=== PATIENT | female | born 1950 | race Caucasian/White ===

== ENCOUNTER 2022-09-02 11:34 | Outpatient (CLI) | payer MEDICARE, SELFPAY ==
--- NOTE | ~2022-09-02 | XR_ITS ---
XR knee LT 3V 09/02/2022 12:31 Indication: Left knee pain Procedure: 3 views left knee Comparison: No prior studies for comparison. Findings: There is mild tricompartment osteoarthritis. There is chondrocalcinosis. Osteopenia. No fra cture, subluxation or dislocation. No foreign bodies. Impression: 1: Mild tricompartment osteoarthritis. 2.: Chondrocalcinosis. Reviewed, dictated and finalized at location B. Impression: 1: Mild tricompartment osteoarthritis. 2.: Chondrocalcinosis.
== END 2022-09-02 11:35 | disposition home or self-care (01) ==
LOC: CHSIMG 11:40
PROVIDERS: PCP Internal Medicine; Visit Provider Internal Medicine
DX: M81.0 Age-related osteoporosis without current pathological fracture (principal); M25.562 Pain in left knee; M17.12 Unilateral primary osteoarthritis, left knee; M11.272 Other chondrocalcinosis, left ankle and foot
CPT/HCPCS: 73562

== ENCOUNTER 2022-09-06 10:10 | Outpatient (RCR) | payer MEDICARE, SELFPAY ==
--- NOTE | 2022-09-06 11:39 | PTOPEVAL1 ---
Assessment and note entered by Lexy Travis DPT Evaluation Information Assessment Status Evaluation Diagnosis L knee pain Onset 08/21/22 Subjective Information Patient reports about 3 weeks ago she was walking on what she thought was a stripe in the floor but it was actually a ledge and fell and hit her knee. She reports she has poor eye sight due to diabetes. She reports about 2 weeks after she went to the MD and x-rays showed arthritis. She reports after the fall she did not have any swelling. She reports prior she did not use a AD but now she is walking with a walker for safety. She now has difficulty with stair navigation and stepping up into cars. Prior to fall patient did not have knee pain. Patient reports presence of hardware in R LE Reported Pain Level Pain Score 0: Self Report Assessment PT Clinical Summary Patient is a 71 year old female who presents to PT with R knee pain following a fall. Patient demonstrates decreased R LE strength, decreased R LE extension ROM and impaired gait impairing her ability to navigate stairs and get into and out of vehicles. She would benefit from skilled PT to address impairments and return to PLOF. Plan of Care Interventions Electrical Stimulation,Gait Training,Hot Pack/Cold Pack,Manual Therapy,Mechanical Traction,Neuro Re- education,Patient/Caregiver Educati,Therapeutic Activities,Therapeutic Exercise PT Services Indicated Yes Treatment Frequency and 2x weekly for 12 visits Duration These treatments will address the objective and functional deficits as defined above. The patient will be advanced safely and appropriately in order for the patient to progress towards his/her prior level of function. Additional exercises will be introduced and as well as a comprehensive home exercise program upon discharge, if needed, ?to ensure carryover of functional gains achieved in the clinic. This treatment plan has been reviewed and agreement upon by the patient.
--- NOTE | 2022-12-16 15:13 | PCPTNOTE ---
Patient discharged due to not returning after last visit and improved symptoms
== END 2022-10-16 20:00 | disposition home or self-care (01) ==
LOC: CHSPT 10:10
PROVIDERS: PCP Internal Medicine; Visit Provider Internal Medicine
DX: M25.562 Pain in left knee (principal)
CPT/HCPCS: 97110; 97161; 97530

== ENCOUNTER 2022-09-09 12:22 | Outpatient (CLI) | payer MEDICARE, SELFPAY ==
--- NOTE | ~2022-09-09 | DEXA_ITS ---
Bone Density Report Name: LEVAR PETERS Age: 71 Sex: Female Ethnicity: White Date of : 1950 Indication: postmenopausal; screening for osteoporosis; parental hip fracture; height loss; prior fracture; hysterectomy; Referring Provider: Mickey Cabrales Study: Bone densitometry was performed. Exam Date: September 09, 2022 Accession number: [id number] Bone Density: Region BMD T-score Z-score Classification AP Spine(L2, L3, L4) 1.077 0.0 2.1 Normal Femoral Neck (Left) 0.638 -1.9 -0.1 Osteopenia Total Hip (Left) 0.704 -2.0 -0.5 Osteopenia World Health Organization criteria for BMD impression classify patients as: Normal (T-score at or above -1.0), Osteopenia (T-score between -1.0 and -2.5), or Osteoporosis (T-score at or below -2.5). 10-year Fracture Risk: FRAX not reported because: Prior hip or vertebral fracture Treated for osteoporosis Clinical Information Provided by Patient: Have had a previous hip or vertebral fracture Has had a low trauma fracture Parent has had a hip fracture Is being treated for osteoporosis Has used the following medications: Reclast (i.e. zoledronate), Vitamin D, Calcium Has the following medical conditions: Hysterectomy Patient maximum height was 66 Menopause Age: 52 Drinks caffeinated beverages Onset of menses at age 15 Number of children 2 Impression: The patient has low bone mass, based on the Left Total Hip T-score. The patient has risk factors, including: parental hip fracture, previous fracture. Discussion: It is important to ask patients whether they are taking their medications and to encourage continued and appropriate compliance with their osteoporosis therapies to reduce fracture risk. It is also important to review their risk factors and encourage appropriate calcium and vitamin D intakes, exercise, fall prevention and other lifestyle measures. Follow-Up: Consider a repeat BMD and Vertebral Fracture Assessment (VFA) exam in 2 years or sooner if medically necessary, to reassess this patient's status. Reported by: Dr. Mau Lopez on 09/09/2022 1:04:00 PM. Reviewed, dictated and finalized at location A. [facility]
== END 2022-09-09 12:23 | disposition home or self-care (01) ==
LOC: CHSIMG 12:23
PROVIDERS: PCP Internal Medicine; Visit Provider Internal Medicine
DX: Z78.0 Asymptomatic menopausal state (principal); M85.89 Other specified disorders of bone density and structure, multiple sites
CPT/HCPCS: 77080

== ENCOUNTER 2024-10-15 07:19 | Outpatient (CLI) | payer MEDICARE, SELFPAY ==
--- OUTSIDE RECORDS SUMMARY | 2024-10-15 07:23 | XMS_ITS | Clinical Summary ---
Author Organization [facility] Address [address] [place] [address] Care Team Providers Care Screen Printer Helper Name Role Phone Senait Powers MD Primary Care Provider Allergies Active Allergy Reactions Criticality Noted Date Comments Codeine Vomiting Reaction: vomitting, , Metformin Nausea only Low 11/15/2019 diarrhea Ondansetron Nausea & Vomiting Low 09/15/2017 Ondansetron Hcl Nausea Only 10/06/2017 Penicillins Rash Reaction: Rash, , Sitagliptin Nausea only Low 11/15/2019 Medications aspirin (ASPIR-81) 81 mg tablet take 1 tablet by oral route every day 0 0 4 Active multivitamin capsule take 1 capsule by oral route every day 0 0 4 Active clopidogrel (PLAVIX) 75 mg tablet take 1 tablet by oral route every day 0 0 4 Active simvastatin (ZOCOR) 40 mg tablet take 1 tablet by oral route every day in the evening 0 0 4 Active insulin glargine (LANTUS) 100 unit/mL injection [The details of the medication are not available because there are pending changes by a home health clinician.] 3 vial 2 4 Active Additional Information Patient taking differently: 28 Units subcutaneous Nightly, Indications: type 2 diabetes mellitus, Reported on 09/15/2017 pravastatin (PRAVACHOL) 40 mg tablet take 1 tablet by oral route every day 30 2 4 Active amitriptyline (ELAVIL) 25 mg tablet take 1 tablet by oral route every day at bedtime 30 1 4 Active acetaminophen (TYLENOL EXTRA STRENGTH) 500 mg tabletIndicatio ns:Pain Take 1,000 mg by mouth every 6 (six) hours as needed for pain. Active senna-docusate (SENEXON-S) 8.6-50 mgIndications:c onstipation Take 2 tablets by mouth 2 (two) times a day. Active losartan (COZAAR) 25 mg tabletIndicatio ns:hypertension Take 25 mg by mouth daily. Active glipiZIDE (GLUCOTROL) 5 mg tabletIndicatio ns:type 2 diabetes mellitus Take 10 mg by mouth 2 (two) times a day before breakfast and lunch. takes 2 five mg. tabs twice a day before meals. Active pantoprazole DR (PROTONIX) 40 mg EC tabletIndicatio ns:Treatment of Non-Bleeding Gastric Disorder Take 40 mg by mouth daily. Active oxyCODONE (ROXICODONE) 5 mg immediate release tabletIndicatio ns:Pain Take 5 mg by mouth every 4 (four) hours as needed for pain. Active cyclobenzaprine (FLEXERIL) 10 mg tabletIndicatio ns:Muscle Spasm Take 10 mg by mouth 3 (three) times a day as needed for muscle spasms. Active traMADol (ULTRAM) 50 mg tabletIndicatio ns:Pain Take 50 mg by mouth every 6 (six) hours as needed for pain. rx in the home # [id number] 8 Active blood-glucose meter (FREESTYLE FREEDOM LITE) kit Check Blood sugar at breakfast and one other ti me of the day on a rotation basis. 7 Active calcium carbonate-vitam in D3 (CALCIUM 600 + D,3,) 1500 mg (600 mg elemental) -200 units per tablet Calcium 600 + D(3) take one tablet twice daily Active lancets (freestyle) 28 gauge misc Check Blood sugar at breakfast and one other ti me of the day on a rotation basis. 7 Active gabapentin (NEURONTIN) 100 mg capsule Take 100 mg by mouth. 8 Active blood glucose diagnostic (FREESTYLE LITE STRIPS) strip Check Blood sugar at breakfast and one other ti me of the day on a rotation basis. 7 Active insulin syringe-needle U-100 1/2 mL 30 gauge syringe Once a day 7 Active omeprazole (PriLOSEC) 40 mg capsule daily. Active blood glucose diagnostic (ONETOUCH ULTRA TEST) strip OneTouch Ultra Test strips TEST THREE TIMES DAILY Active raNITIdine (ZANTAC) 150 mg tablet every 12 hours. Acti ve traZODone (DESYREL) 50 mg tablet daily. Active prochlorperazin e (COMPAZINE) 10 mg tablet TK 1 T PO Q 6 H PRF NAUSEA OR VOM 0 8 Active pioglitazone (ACTOS) 45 mg tablet TK 1 T PO Q DAY 0 9 Active Active Problems Problem Noted Date Diagnosed Date Essential hypertension 04/04/2020 Assessment & Plan (04/10/2021 2:07 PM BUSINESS ANALYST MANAGER): Impression: Chronic stable hypertension, controlled medications. Blood pressure stable this office visit. Plan: Medications reviewed, no changes made. Continue blood pressure management as per primary care provider. Atherosclerosis with claudication of extremity 1 06/04/2019 Endometrial cancer 01/14/2019 Peripheral vascular disease, unspecified 019 Diabetes mellitus 10/31/2017 Assessment & Plan (04/10/2021 2:07 PM BUSINESS ANALYST MANAGER): Impression: Patient reports she is diabetic and is compliant with glucose monitoring and glucose therapy. She states her blood sugars have been below 100. Plan: Continue diabetic management as per primary care provider. Foot-drop 10/31/2017 Closed fracture of right tibial plateau 09/19/19 18 Atherosclerosis of [place] of both lower extremities with intermittent claudication 12/30/2016 Assessment & Plan (04/10/2021 2:09 PM BUSINESS ANALYST MANAGER): Impression: Patient has stable non disabling claudication to bilateral lower extremity. She has some progression of stenosis is noted on the arterial Doppler. No ulcerations noted to bilateral lower extremities. Plan: No surgical interventions are needed at this time. Patient to follow-up in 1 year for re-evaluation with arterial duplex. Patient instructed to follow up sooner if she develops any worsening symptoms. Patient understands. Assessment & Plan (04/07/2019 3:11 PM BUSINESS ANALYST MANAGER): Impression: Stable nondisabling bilateral calf level claudication. No ischemic ulcerations or ischemic rest pain. No progressive stenosis noted on arterial Doppler surveillance. Plan: No surgical intervention currently needed. Patient follow-up in 6 months for re-evaluation and repeat lower extremity arterial Doppler surveillance. Diabetic polyneuropathy 07/16/2013 Overview (08/29/2016): Polyneuropathy in diabetes Mononeuropathy associated with type II diabetes mellitus 06/16/2013 Overview (08/30/2016): Type 2 diabetes mellitus with diabetic neuropathy Hyperlipidemia 06/16/2013 Overview (08/31/2016): Hyperlipidemia Assessment & Plan (04/07/2019 3:11 PM BUSINESS ANALYST MANAGER): Impression: Stable hyperlipidemia. Plan: Continue current pharmacotherapy as directed by PCP. 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 Immunizations Immunization Administration Dates Next Due Hep A, Adult 12/03/2005 Influenza, Quadrivalent, Split, Intramuscular ,02/27/2015 Influenza, Quadrivalent, Spl it, Preservative Free, Intramuscular 02/28/2020,02/16/2018 Pneumococcal Conjugate PCV 13 02/16/2018 Pneumococcal Polysaccharide PPV23 02/27/2015 Surgical History Surgery Date Site/Laterality Comments TUBAL LIGATION Bilateral tubal ligation OPEN REDUCTION INTERNAL FIXATION ORIF Medical History Medical History Date Comments Diabetes mellitus (HCC) Diabetes Hyperlipidemia Hyperlipidemia Type 2 diabetes mellitus (HCC) D iabetes type 2; Comments: [facility] 12/22/2013 - Hx Other Medical cataracts/ 2 me erick rods in left thigh; Comments: [facility] 12/22/2013 - Family History Medical History Relation Name Comments Parkinsonism Father Parkinson's dis ease; Stroke Father Stroke; Alzheimer's disease Mother Alzheime r's disease; Bladder Cancer Mother Cancer, bladd er; Breast cancer Mother Cancer, breast ; Cancer Other Family history of Cancer; Other Other cancer unknown; Stroke Other Family history of Stroke; Relation Name Status Comments Father Mother Other Social History Tobacco Use Types Packs/Day Years Used Date Smoking Tobacco: Every Day Alcohol Use Standard Drinks/Week Comments No 0 (1 standard drink = 0.6 oz pur e alcohol) Comments Unknown Sex and Gender Information Value Date Recorded Sex Assigned at Not on file Legal Sex Female 2:15 PM BUSINESS ANALYST MANAGER Gender Identity Not on file Sexual Orientation Not on file Obstetrics History Last Filed Vital Signs Vital Sign Reading Time Taken Comments Blood Pressure 155/83 04/10/2021 10:33 AM BUSINESS ANALYST MANAGER Pulse 105 04/10/2021 10:33 AM BUSINESS ANALYST MANAGER Temperature 36.9 C (98.4 F) 03/26/2019 11:11 AM CDT Respiratory Rate 97 11/28/2017 10:05 AM CDT Oxygen Saturation 97% 11/28/2017 10:05 AM CDT Inhaled Oxygen Concentration - - Weight 77.1 kg (170 lb) 04/10/2021 10:33 AM BUSINESS ANALYST MANAGER Height 168.9 cm (5' 6.5) 04/10/2021 10:33 AM CS T Body Mass Index 27.03 04/10/2021 10:33 AM BUSINESS ANALYST MANAGER Plan of Treatment Not on file Insurance [facility] MEDICARE ADVANTAGE [facility] MEDICARE ADVANTAGE [facility] MEDICARE [facility] RE[facility] HMO REF Advance Directives For more information, please contact: [phone] * Full Code (Latest Code Status on File) Date Activated Date Inactivated Comments 2017 3:19 PM Full code, laura rothman CPR Care Teams Screen Printer Helper Relationship Specialty Start Date End Date Senait Powers MD PCP - General 09/11/17
--- OUTSIDE RECORDS SUMMARY | 2024-10-15 07:24 | XMS_ITS | Encounter Summary ---
Author Organization [facility] Address [address] [place] [address] Phone Care Team Providers Care Public Transit Bus Driver Name Role Phone Nestor Gotti Unavailable Senait Powers MD Primary Care Provider [phone] Bon Cornell MD Unavailable Reason for Visit * Reason Comments Medication Refill Encounter Details Date Type Department Care Team (Late st Contact Info) Description 08/17/2021 Refill [facility] - Endocrinology - [place] [address] [place] [address] Bon Cornell MD [address] [address] Medication Refill Social History Tobacco Use Types Packs/Day Years Used Date Smoking Tobacco: Former Smokeless Tobacco: Never Alcohol Use Standard Drinks/Week Comments No 0 (1 standard drink = 0.6 oz pur e alcohol) PHQ-2 Answer Date Recorded Total Score - Questions 1-9 0 11/2020 Sexually Active Control Partners Comments Never Comments No Sex and Gender Information Value Date Recorded Sex Assigned at Not on file Legal Sex Female 10:56 PM CDT Gender Identity Not on file Sexual Orientation Not on file documented as of this encounter Miscellaneous Notes * Telephone Encounter - Jimena Estrada RN - 08/17/2021 1:40 PM CDT Requested Prescriptions Pending Prescriptions Disp Refills ??? Insulin Syringe-Needle U-100 (INSULIN SYRINGE .5CC/31GX5/16) 31G X 5/16 0.5 ML Misc [PharmacyMed Name: CARROL SYR/NDL 31G 0.5ML 8MM] 100 Each 3 Sig: USE ONCE DAILY DIRECTED Next appt: Message sent to schedule follow up. documented in this encounter Plan of Treatment Not on file documented as of this encounter Visit Diagnoses Not on filedocumented in this encounter Additional Health Concerns Assessment Noted Time PHQ-9 Depression Total Score: 0 10/31/19 21 10:00 AM CDT documented as of this encounter Care Teams Public Transit Bus Driver Relationship Specialty Start Date End Date Senait Powers MD [address] [place] [address] PCP - General Family Medicine 07/03/16 11/10/23 Nestor Gotti [address] [facility] [place] [address] Ophthalmology 07/03/16 Bon Cornell MD [address] [address] Consulting Physician Endocrinology 06/13/20 08/11/24 documented as of this encounter
--- OUTSIDE RECORDS SUMMARY | 2024-10-15 07:24 | XMS_ITS | Encounter Summary ---
Author Organization [facility] Address [address] [place] [address] Phone Care Team Providers Care Oil And Gas Well Treatment Operator Name Role Phone Nestor Gotti Unavailable Senait Powers MD Primary Care Provider [phone] Bon Cornell MD Unavailable Reason for Visit * Reason Comments Medication Refill Encounter Details Date Type Department Care Team (Late st Contact Info) Description 05/10/2021 Refill [facility] - Endocrinology - [place] [address] [place] [address] Bon Cornell MD [address] [address] Medication Refill Social History Tobacco [...] on file Sexual Orientation Not on file COVID-19 Exposure Response Date Recorded In the last month, have you been in contact with someone who was confirmed or suspected to have Coronavirus / COVID-19? No / Unsure 05/10/2021 1:38 PM GED TEACHER documented as of this encounter Miscellaneous Notes * Telephone Encounter - Jimena Estrada, RN - 05/10/2021 10:13 AM GED TEACHER Requested Prescriptions Pending Prescriptions Disp Refills ??? Insulin Syringe-Needle U-100 (INSULIN SYRINGE .5CC/31GX5/16) 31G X 5/16 0.5 ML Misc [PharmacyMed Name: STARLAEENS SYR/NDL 31G 0.5ML 8MM] 100 Each 3 Sig: USE ONCE DAILY DIRECTED Next appt: 05/10/2021 TEACHER documented in this encounter Plan of Treatment Not on file documented as of this encounter Visit Diagnoses Not on filedocumented in this encounter Additional Health Concerns Assessment Noted Time PHQ-9 Depression Total Score: 0 10/31/19 21 10:00 AM CDT documented as of this encounter Care Teams Oil And Gas Well Treatment Operator Relationship Specialty Start Date End Date Senait Powers MD [address] [place] [address] PCP - General Family Medicine 07/03/16 11/10/23 Nestor Gotti [address] [place] [address] Ophthalmology 07/03/16 Bon Cornell MD [address] [address] Consulting Physician Endocrinology 06/13/20 08/11/24 documented as of this encounter
--- OUTSIDE RECORDS SUMMARY | 2024-10-15 07:24 | XMS_ITS | Referral Summary ---
Author Organization [facility] Address [address] [place] [address] Care Team Providers Care Human Insights Lead Ads Marketing Name Role Phone Senait Powers MD Primary [...] for pain. rx in the home # [id number] 8 Active blood-glucose meter (FREESTYLE FREEDOM LITE) [...] 04/04/2020 Assessment & Plan (04/10/2021 2:07 PM MEAT INSPECTOR): Impression: Chronic stable hypertension, controlled medications. Blood pressure stable this office visit. Plan: Medications reviewed, no changes made. Continue blood pressure management as per primary care provider. Atherosclerosis with claudication of extremity 1 06/04/2019 Endometrial cancer 01/14/2019 Peripheral vascular disease, unspecified 019 Diabetes mellitus 10/31/2017 Assessment & Plan (04/10/2021 2:07 PM MEAT INSPECTOR): Impression: Patient reports she is diabetic and is compliant with glucose monitoring and glucose therapy. She states her blood sugars have been below 100. Plan: Continue diabetic management as per primary care provider. Foot-drop 10/31/2017 Closed fracture of right tibial plateau 09/19/19 18 Atherosclerosis of [place] of both lower extremities with intermittent claudication 12/30/2016 Assessment & Plan (04/10/2021 2:09 PM MEAT INSPECTOR): Impression: Patient has stable non disabling claudication [...] understands. Assessment & Plan (04/07/2019 3:11 PM MEAT INSPECTOR): Impression: Stable nondisabling bilateral calf level claudication. [...] Hyperlipidemia Assessment & Plan (04/07/2019 3:11 PM MEAT INSPECTOR): Impression: Stable hyperlipidemia. Plan: Continue current pharmacotherapy as directed by PCP. 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 Immunizations Immunization Administration Dates Next Due Hep A, Adult 12/03/2005 Influenza, Quadrivalent, Split, Intramuscular ,02/27/2015 Influenza, Quadrivalent, Spl it, Preservative Free, Intramuscular 02/28/2020,02/16/2018 Pneumococcal Conjugate PCV 13 02/16/2018 Pneumococcal Polysaccharide PPV23 02/27/2015 Social History Tobacco Use Types Packs/Day Years Used Date Smoking Tobacco: Every Day Alcohol Use Standard Drinks/Week Comments No 0 (1 standard drink = 0.6 oz pur e alcohol) Comments Unknown Sex and Gender Information Value Date Recorded Sex Assigned at Not on file Legal Sex Female 2:15 PM MEAT INSPECTOR Gender Identity Not on file Sexual Orientation Not on file Last Filed Vital Signs Vital Sign Reading Time Taken Comments Blood Pressure 155/83 04/10/2021 10:33 AM MEAT INSPECTOR Pulse 105 04/10/2021 10:33 AM MEAT INSPECTOR Temperature 36.9 C (98.4 F) 03/26/2019 11:11 AM CDT Respiratory Rate 97 11/28/2017 10:05 AM CDT Oxygen Saturation 97% 11/28/2017 10:05 AM CDT Inhaled Oxygen Concentration - - Weight 77.1 kg (170 lb) 04/10/2021 10:33 AM MEAT INSPECTOR Height 168.9 cm (5' 6.5) 04/10/2021 10:33 AM CS T Body Mass Index 27.03 04/10/2021 10:33 AM MEAT INSPECTOR Plan of Treatment Not on file Insurance [facility] MEDICARE ADVANTAGE [facility]IC[facility] Address: [address] [address] [place] [address] [facility] MEDICARE ADVANTAGE [facility]IC[facility] Address: [address] [address] [place] [address] [facility] MEDICARE ADVANTAGE [facility] MEDICARE Address: [address] [place] [address] [facility] MEDIC[facility] Address: [address] [place] [address] [facility]IC[facility] Address: [address] [address] [place] [address] Advance Directives For more information, please contact: [phone] * Full Code (Latest Code Status on File) Date Activated Date Inactivated Comments 2017 3:19 PM Full code, laura fair wants CPR Care Teams Human Insights Lead Ads Marketing Relationship Specialty Start Date End Date Senait Powers MD PCP - General 09/11/17
--- OUTSIDE RECORDS SUMMARY | 2024-10-15 07:24 | XMS_ITS | Encounter Summary ---
Author Organization [facility] Address [address] [place] [address] Phone Care Team Providers Care Manufacturing Business Analyst Name Role Phone Nestor Gotti Unavailable Senait Powers MD Primary Care Provider [phone] Bon Cornell MD Unavailable Reason for Visit * Reason Comments Medication Refill Encounter Details Date Type Department Care Team (Late st Contact Info) Description 10/26/2021 Refill [facility] - Endocrinology - [place] [address] [place] [address] Bon Cornell MD [address] [address] Medication Refill Social History Tobacco [...] Telephone Encounter - Jimena Estrada RN - 10/29/2021 1:48 PM CDT Requested Prescriptions Pending Prescriptions Disp Refills ??? glipiZIDE (GLUCOTROL) 5 MG Tablet [Pharmacy Med Name: GLIPIZIDE 5MG TABLETS] 360 Tablet 1 Sig: TAKE 2 TABLETS BY MOUTH TWICE DAILY Next appt: 12/25/2021 documented in this encounter Plan of Treatment Not on file documented as of this encounter Visit Diagnoses Diagnosis Type 2 diabetes mellitus with retinopathy, with long-term current use of insulin, macular edema presence unspecified, unspecified laterality, unspecified retinopathy severity (HCC) documented in this encounter Additional Health Concerns Assessment Noted Time PHQ-9 Depression Total Score: 0 10/31/19 21 10:00 AM CDT documented as of this encounter Care Teams Manufacturing Business Analyst Relationship Specialty Start Date End Date Senait Powers MD [address] [place] [address] PCP - General Family Medicine 07/03/16 11/10/23 Nestor Gtoti [address] [facility] [address] Ophthalmology 07/03/16 Bon Cornell MD [address] [address] Consulting Physician Endocrinology 06/13/20 08/11/24 documented as of this encounter
--- OUTSIDE RECORDS SUMMARY | 2024-10-15 07:24 | XMS_ITS | Clinical Summary ---
Author Organization [facility] Address [address] [place] [address] Phone Care Team Providers Care Mold Burner Name Role Phone Nestor Gotti [facility] Allergies Active Allergy Reactions Criticality Noted Date Comments Codeine Unknown 07/03/2016 Sitagliptin Nausea 11/15/2019 Metformin Nausea 11/15/2019 diarrhea Ondansetron Nausea Low 09/15/2017 Penicillin G Unknown 07/03/2016 Ondansetron Hcl Nausea 10/06/2017 Medications Calcium Carb-Cholecalci ferol (CALCIUM 600 + D PO) Take 1 Tab by mouth daily. Active Multiple Vitamins-Minera ls (MULTIVITAMIN ADULTS 50+ PO) Take 1 Tab by mouth daily. Active aspirin 81 MG Chewable Tablet Take 81 mg by mouth daily. Active Calcium Carbonate-Vitam in D 600-200 MG-UNIT Tablet take one tablet twice daily Active zoledronic acid (RECLAST) 5 MG/100ML Solution 5 mg by Intravenous route See Admin Instructions. Patient to receive injection once yearly. 100 mL 1 Active insulin glargine (Lantus) 100 UNIT/ML Solution 32 Units by Subcutaneous route nightly. 30 mL 1 2 Active losartan (COZAAR) 50 MG TabletIndicatio ns:Hypertension , unspecified type Take 1 Tablet by mouth daily. 90 Tablet 3 3 Active simvastatin (ZOCOR) 40 MG TabletIndicatio ns:Dyslipidemia Take 1 Tablet by mouth every evening. 90 Tablet 3 3 Active pantoprazole (PROTONIX) 40 MG Tablet Delayed ResponseIndicat ions:Indigestio n Take 1 Tablet by mouth daily. 90 Tablet 3 3 Active amitriptyline (ELAVIL) 25 MG TabletIndicatio ns:Depression, unspecified depression type Take 1 Tablet by mouth nightly. 90 Tablet 3 3 Active ketoconazole (NIZORAL) 2 % Shampoo Apply shampoo 2 times per week for 8 weeks then as needed 120 mL 3 Active clobetasol (TEMOVATE) 0.05 % Solution Apply 2 times daily. For up to 2 weeks then as needed 50 mL 3 Active Insulin Syringe-Needle U-100 (TRUEplus Insulin Syringe) 31G X 5/16 0.5 ML Misc USE ONCE DAILY DIRECTED 100 Each 3 3 Active glipiZIDE (GLUCOTROL) 5 MG TabletIndicatio ns:Type 2 diabetes mellitus with retinopathy, with long-term current use of insulin, macular edema presence unspecified, unspecified laterality, unspecified retinopathy severity (HCC) TAKE 2 TABLETS BY MOUTH TWICE DAILY 240 Tablet 3 Active Active Problems Problem Noted Date Diagnosed Date Endometrial cancer 01/14/2019 Peripheral vascular disease 08/17/2018 Type 2 diabetes mellitus wit h retinopathy, with long-term current use of insulin 08/07/2016 Diabetic polyneuropathy asso ciated with type 2 diabetes mellitus 07/03/2016 Ophthalmic manifestations of diabetes 07/03/2016 High blood pressure 07/03/2016 Dyslipidemia 07/03/2016 Age-related osteoporosis wit hout current pathological fracture Immunizations Immunization Administration Dates Next Due Covid-19, Mrna, Lnp-s, Pf, 3 0 Mcg/0.3 Ml Dose (Scaled Agile) 08/12/2020,07/22/2020 08/19/2020 HEP B IMM GLOB ADULT/ 5 ML 12/03/2005 Hepatitis A Vaccine 12/03/2005 Influenza Vaccine greater than 3 yrs 03/28/2016 Influenza Vaccine, Quadrivalent, PF 02/28/2020,0 02/16/2018 Influenza, Injectable, Quadrivalent 03/28/2016,1 ,02/27/2015 Influenza, Quadrivalent, Adjuvanted 06/26/2022 Pneumococcal Vaccine - 13 Valent 02/16/2018 Pneumococcal Vaccine Adult - 23 Valent ,02/27/2015 Family History Medical History Relation Name Comments Heart Disease Father Parkinsonism Father Alzheimer's Disease Mother Breast Cancer Mother Cancer Sister Relation Name Status Comments Father Mother Sister Social History Tobacco Use Types Packs/Day Years Used Date Smoking Tobacco: Former Smokeless Tobacco: Never Tobacco Cessation:Counseling Given: Not Answered Alcohol Use Standard Drinks/Week Comments No 0 (1 standard drink = 0.6 oz pur e alcohol) PHQ-2 Answer Date Recorded Total Score - Questions 1-9 0 05/2022 Sexually Active Control Partners Comments Never Comments No Sex and Gender Information Value Date Recorded Sex Assigned at Not on file Legal Sex Female 10:56 PM CDT Gender Identity Not on file Sexual Orientation Not on file Last Filed Vital Signs Vital Sign Reading Time Taken Comments Blood Pressure 140/84 06/26/2022 9:42 AM INJECTION MOLDING PROCESS TECHNICIAN Pulse 108 06/26/2022 9:42 AM INJECTION MOLDING PROCESS TECHNICIAN Temperature 36.7 C (98.1 F) 06/26/2022 9:42 AM INJECTION MOLDING PROCESS TECHNICIAN Respiratory Rate 18 06/26/2022 9:42 AM INJECTION MOLDING PROCESS TECHNICIAN Oxygen Saturation 97% 06/26/2022 9:42 AM INJECTION MOLDING PROCESS TECHNICIAN Inhaled Oxygen Concentration - - Weight 74.3 kg (163 lb 14.4 oz) 06/26/2022 9:42 AM INJECTION MOLDING PROCESS TECHNICIAN Height 167.6 cm (5' 6) 06/26/2022 9:42 AM INJECTION MOLDING PROCESS TECHNICIAN Body Mass Index 26.45 06/26/2022 9:42 AM INJECTION MOLDING PROCESS TECHNICIAN Plan of Treatment Health Maintenance Due Date Last Done Comments Diabetes: Foot Exam 1952 TdaP Immunization 1950 Zoster Immunization (1 of 2) 11/12/1971 Colonoscopy 1997 Colorectal Cancer Screening 1997 Cologuard 2002 Immunochemical Fecal Occult Blood 2002 Respiratory Syncytial Virus (RSV) Immunization (Adult) (1 - Risk 60-74 years 1-dose series) 2012 Mammogram 04/27/2019 04/27/2018, 10/25/2015 DEXA Bone Density 08/21/2020 08/21/2018 Diabetes: Eye Exam 05/09/2022 05/09/2021, 01/08/2018 Diabetes: Hemoglobin A1c 12/24/2022 023, 10/30/2020, 02/28/2020, Additional history exists Diabetes: Nephropathy Screening 06/26/2023 06/26/2022, 06/26/2022, 10/30/2020, Additional history exists Influenza Immunization (#1) 2024 02/0 05/2022, 02/28/2020, 02/16/2018, Additional history exists SARS-COV-2 Immunization ( season) 2024 05/04/2021, 08/12/2020, 07/22/2020 Hepatitis C Virus (HCV) Screening Completed 07/09/2016 Pneumococcal Immunization (50+ years) Completed 10/30/2020, 02/16/2018, 02/27/2015 Pneumococcal Immunization Combined Discontinued 10/30/2020, 02/16/2018, 02/27/2015 Hepatitis B Immunization Aged Out No longer eligible based on patient's age to complete this topic Meningococcal Immunization (ACWY) Aged Out No longer eligible based on patient's age to complete this topic Rotavirus Immunization Aged Out No lo nger eligible based on patient's age to complete this topic Procedures Procedure Name Priority Date/Time Associated Diagnosis Comments CMP (COMPREHENSIVE METABOLIC PANEL) Routine 06/26/2022 11:04 AM INJECTION MOLDING PROCESS TECHNICIAN Type 2 diabetes mellitus with retinopathy, with long-term current use of insulin, macular edema presence unspecified, unspecified laterality, unspecified retinopathy severity (HCC) Hypertension, unspecified type HEMOGLOBIN A1C W/ ESTIMATED GLUCOSE Routine 06/26/2022 11:04 AM INJECTION MOLDING PROCESS TECHNICIAN Type 2 diabetes mellitus with retinopathy, with long-term current use of insulin, macular edema presence unspecified, unspecified laterality, unspecified retinopathy severity (HCC) HM DILATED EYE EXAM 05/09/2021 1 2:00 AM INJECTION MOLDING PROCESS TECHNICIAN [facility] BONE DENSITOMETRY AXIAL SKELETON Routine 08/21/2018 10:26 AM CDT Menopause [facility] SCREENING BILATERAL DIGITAL W CAD W CONNOR Routine 04/27/2018 11:46 AM INJECTION MOLDING PROCESS TECHNICIAN Screening breast examination HEPATITIS C ANTIBODY Routine 07/09/2016 10:14 AM INJECTION MOLDING PROCESS TECHNICIAN Screening from Last 3 Months or Most Recently Relevant to Health Maintenance Results * (ABNORMAL) HEMOGLOBIN A1C W/ ESTIMATED GLUCOSE (06/26/2022 11:04 AM INJECTION MOLDING PROCESS TECHNICIAN) HGB-A1C 10.1(H) 4.0 - 6.0 % 06/26/2022 11:49 AM INJECTION MOLDING PROCESS TECHNICIAN [facility] Est Average Glucose 243.2 mg/dL 06/26/2022 11:49 AM INJECTION MOLDING PROCESS TECHNICIAN [facility] Blood Venipuncture / Unknown 06/26/2022 11:04 AM INJECTION MOLDING PROCESS TECHNICIAN 06/26/2022 11:24 AM INJECTION MOLDING PROCESS TECHNICIAN Narrative [facility] - 06/26/2022 11:49 AM INJECTION MOLDING PROCESS TECHNICIAN HEMOGLOBIN A1C: DIABETIC PATIENTS: WELL-CONTROLLED: 6.2 - 7.0 INTERMEDIATE WELL-CONTROLLED: 7.0 - 9.0 POORLY-CONTROLLED: >9.0 us Yolanda Roque PAC CHEMISTRY ORDERABLES Fin al Result [facility] [address] [place] [address] * (ABNORMAL) CMP (COMPREHENSIVE METABOLIC PANEL) (06/26/2022 11:04 AM INJECTION MOLDING PROCESS TECHNICIAN) SODIUM 139 136 - 144 mmol/L 06/26/2022 11:58 AM INJECTION MOLDING PROCESS TECHNICIAN [facility] POTASSIUM 3.9 3.5 - 5.1 mmol/L 06/26/2022 11:58 AM INJECTION MOLDING PROCESS TECHNICIAN [facility] CHLORIDE 106 100 - 110 mmol/L 06/26/2022 11:58 AM INJECTION MOLDING PROCESS TECHNICIAN [facility] CO2, VENOUS 22 22 - 32 mmol/L 06/26/2022 11:58 AM INJECTION MOLDING PROCESS TECHNICIAN [facility] ANION GAP 14.9 8.0 - 20.0 mmol/L 06/26/2022 11:58 AM [facility] GLUCOSE 219(H) 70 - 99 mg/dL 06/26/2022 11:58 AM [facility] BUN 17 8 - 23 mg/dL 06/26/2022 11:58 AM [facility] CREATININE, BLOOD 0.66 0.60 - 1.10 mg/dL 06/26/2022 11:58 AM [facility] BUN/CREATININE RATIO 26(H) 12 - 20 ratio 06/26/2022 11:58 AM [facility] TOTAL PROTEIN 7.0 6.0 - 8.3 g/dL 06/26/2022 11:58 AM [facility] ALBUMIN 4.1 3.5 - 5.2 g/dL 06/26/2022 11:58 AM [facility] Comment: The colormetric methods used for the determination of Albumin may lead to falsely elevated test results in patients suffering from renal failure or insufficiency due to interference with other proteins. A/G RATIO 1.4 1.0 - 2.0 06/26/2022 11:58 AM [facility] CALCIUM 9.7 8.9 - 10.3 mg/dL 06/26/2022 11:58 AM [facility] T BILI 0.5 <=1.2 mg/dL 06/26/2022 11:58 AM [facility] SGOT (AST) 19 <=32 U/L 06/26/2022 11:58 AM [facility] SGPT (ALT) 16 <=41 U/L 06/26/2022 11:58 AM [facility] ALKALINE PHOSPHATASE 84 35 - 105 U/L 06/26/2022 11:58 AM [facility] IS THE PATIENT REQUIRED TO BE FASTING? No 06/26/2022 11:58 AM [facility] GFR, ESTIMATED >60 >=60 06/26/2022 11:58 AM [facility] Comment: Creatinine Clearance is the preferred criteria for selecting drug dose adjustments in renally impaired patients. The GFR is provided as additional pertinent clinical information. GFR is reported in mL/min/1.73 sq m. Calculation based on the Chronic Kidney Disease Epidemiology Collaboration (CKD- EPI) equation refit without adjustment for race. GFR, EST. >60 >=60 023 11:58 AM INJECTION MOLDING PROCESS TECHNICIAN [facility] GFR, EST. NONAFRICAN >60 >=60 06/26/2022 11:58 AM INJECTION MOLDING PROCESS TECHNICIAN [facility] Blood Venipuncture / Unknown 06/26/2022 11:04 AM INJECTION MOLDING PROCESS TECHNICIAN 06/26/2022 11:24 AM INJECTION MOLDING PROCESS TECHNICIAN us Yolanda Roque PAC CHEMISTRY ORDERABLES Fin al Result Performing Organization Address [facility] Co de Phone Number [facility] [address] [place] [address] * DILATED EYE EXAM (05/09/2021 12:00 AM INJECTION MOLDING PROCESS TECHNICIAN) 05/09/2021 us Not On File Provider PROCEDURE/MINOR SURGICAL OR DERABLES Final Result Performing Organization Address [facility] Co de Phone Number SCAN * [facility] BONE DENSITOMETRY AXIAL SKELETON (08/21/2018 10:26 AM CDT) Anatomical Region Laterality Modality BODY N/A Other 08/21/2018 11:0 3 AM CDT Impressions 08/21/2018 11:05 AM CDT IMPRESSION: Osteoporosis. Fracture risk assessment (FRAX): 10 year risk for a major osteoporotic fracture is 37.4 % 10 year risk for a hip fracture is 6.0 % The FRAX tool has not been validated in patients currently or previously treated with pharmacotherapy for osteoporosis. In such patients, clinical judgement must be exercised in interpreting FRAX scores as the fracture risk may be overestimated. REFERENCE: Bone mineral density: Normal (T-score above or = -1.0) Low bone mass (T-score between -1.0 and -2.5) replaces the previously used term osteopenia Osteoporosis (T-score = or below -2.5) Medical evaluation for secondary causes of low bone mineral density may be appropriate. FRAX is a World Health Organization validated fracture risk assessment tool that calculates a person's 10 year probability of a major osteoporosis related fracture and hip fracture. According to the National Osteoporosis Foundation guidelines, postmenopausal women and men age 50 or older with low bone mass and a 10 year probability of a major osteoporosis related fracture = or greater than 20% or a 10 year probability of a hip fracture = or greater than 3% should be considered for treatment. For further information, including treatment recommendations, please refer to the 2013 ISCD Official Positions (http://www.iscd.org) and the NOF's Clinician's Guide to Prevention and Treatment of Osteoporosis (http://www.nof.org/professionals/clinical-guidelines) Narrative 08/21/2018 11:05 AM CDT EXAM DESCRIPTION: [facility] BONE DENSITOMETRY AXIAL SKELETON REASON FOR STUDY: 67 y/o year old F with given history of screening. Scrap Wheeler/Model: [employer] (S/N [id number]) CLINICAL INFORMATION: Current height: 5 foot 6 inches Maximum height: 5 foot 6 inches Weight: 160 pounds Risk factors: The history of adult fracture, family history of adult fracture, secondary osteoporosis and chronic and acid usage x1 year. The patient currently takes calcium and vitamin-D supplementation. COMPARISON: None available. FINDINGS: AP LUMBAR SPINE L1-L4: Total BMD is 1.241 g/cm2 T-score is 0.4 LEFT HIP: Total BMD is 0.719 g/cm2 T-score is -2.3 Femoral neck BMD is 0.683 g/cm2 T-score is -2.6 THIS IS AN ELECTRONICALLY VERIFIED FINAL REPORT 08/21/2018 11:03 AM - Electronically signed by Kevin Allen M.D. AG: LACEY Report ID: [id number] Reading Location: [id number] Procedure Note Kevin Allen MD - 08/21/2018 EXAM DESCRIPTION: [facility] BONE DENSITOMETRY AXIAL SKELETON REASON FOR STUDY: 67 y/o year old F with given history of screening. Scrap Wheeler/Model: [employer] (S/N [id number]) CLINICAL INFORMATION: Current height: 5 foot 6 inches Maximum height: 5 foot 6 inches Weight: 160 pounds Risk factors: The history of adult fracture, family history of adult fracture, secondary osteoporosis and chronic and acid usage x1 year. The patient currently takes calcium and vitamin-D supplementation. COMPARISON: None available. FINDINGS: AP LUMBAR SPINE L1-L4: Total BMD is 1.241 g/cm2 T-score is 0.4 LEFT HIP: Total BMD is 0.719 g/cm2 T-score is -2.3 Femoral neck BMD is 0.683 g/cm2 T-score is -2.6 THIS IS AN ELECTRONICALLY VERIFIED FINAL REPORT 08/21/2018 11:03 AM - Electronically signed by Kevin Allen M.D. AG: LACEY Report ID: [id number] Reading Location: [place] [address] IMPRESSION: Osteoporosis. Fracture risk assessment (FRAX): 10 year risk for a major osteoporotic fracture is 37.4 % 10 year risk for a hip fracture is 6.0 % The FRAX tool has not been validated in patients currently or previously treated with pharmacotherapy for osteoporosis. In such patients, clinical judgement must be exercised in interpreting FRAX scores as the fracture risk may be overestimated. REFERENCE: Bone mineral density: Normal (T-score above or = -1.0) Low bone mass (T-score between -1.0 and -2.5) replaces the previously used term osteopenia Osteoporosis (T-score = or below -2.5) Medical evaluation for secondary causes of low bone mineral density may be appropriate. FRAX is a World Health Organization validated fracture risk assessment tool that calculates a person's 10 year probability of a major osteoporosis related fracture and hip fracture. According to the National Osteoporosis Foundation guidelines, postmenopausal women and men age 50 or older with low bone mass and a 10 year probability of a major osteoporosis related fracture = or greater than 20% or a 10 year probability of a hip fracture = or greater than 3% should be considered for treatment. For further information, including treatment recommendations, please refer to the 2013 ISCD Official Positions (http://www.iscd.org) and the NOF's Clinician's Guide to Prevention and Treatment of Osteoporosis (http://www.nof.org/professionals/clinical-guidelines) us Senait Powers MD IMG DEXA ORDERABLES Final R esult * [facility] SCREENING BILATERAL DIGITAL W CAD W CONNOR (04/27/2018 11:46 AM INJECTION MOLDING PROCESS TECHNICIAN) Anatomical Region Laterality Modality breast Bilateral Mammography 04/27/2018 11:2 3 AM INJECTION MOLDING PROCESS TECHNICIAN Narrative 04/28/2018 7:24 AM INJECTION MOLDING PROCESS TECHNICIAN - [facility] SCREENING BILATERAL DIGITAL W CAD W CONNOR BILATERAL DIGITAL SCREENING MAMMOGRAM 3D/2D WITH CAD WITH MEDIOLATERAL OBLIQUE CRANIOCAUDAL: 04/27/2018 The study was acquired using digital technology and interpreted from soft copy. Current study was also evaluated with ICAD version 7.2. CLINICAL: Routine screening. Patient has no complaints. No personal history of cancer. Mother with postmenopausal breast cancer. COMPARISONS: Comparison is made to exams dated: 10/25/2015, 03/27/2015, and 09/16/2014 [facility]. BREAST TISSUE:There are scattered fibroglandular densities in both breasts. FINDINGS: No significant masses, calcifications, or other findings are seen in either breast. There has been no significant interval change. IMPRESSION: BI-RAD 1 NEGATIVE There is no mammographic evidence of malignancy. A 1 year screening mammogram is recommended. The patient has been or will be contacted. The patient will be entered into a reminder system with a target due date of 1 year for her next screening exam. Electronically signed by: Alyssia romero/astrid:04/27/2018 14:28:51 Rx Specialist: Elvie ROMERO(R)(M), [facility] letter sent: Normal Exam Reading location: [place] BI-RADS: 1 Negative Procedure Note Alyssia De La Fuente MD - 04/28/2018 - [facility] SCREENING BILATERAL DIGITAL W CAD W CONNOR BILATERAL DIGITAL SCREENING MAMMOGRAM 3D/2D WITH CAD WITH MEDIOLATERAL OBLIQUE CRANIOCAUDAL: 04/27/2018 The study was acquired using digital technology and interpreted from soft copy. Current study was also evaluated with ICAD version 7.2. CLINICAL: Routine screening. Patient has no complaints. No personal history of cancer. Mother with postmenopausal breast cancer. COMPARISONS: Comparison is made to exams dated: 10/25/2015, 03/27/2015, and 09/16/2014 [facility]. BREAST TISSUE:There are scattered fibroglandular densities in both breasts. FINDINGS: No significant masses, calcifications, or other findings are seen in either breast. There has been no significant interval change. IMPRESSION: BI-RAD 1 NEGATIVE There is no mammographic evidence of malignancy. A 1 year screening mammogram is recommended. The patient has been or will be contacted. The patient will be entered into a reminder system with a target due date of 1 year for her next screening exam. Electronically signed by: Alyssia romero/astrid:04/27/2018 14:28:51 Rx Specialist: Elvie ROMERO(Ry)(M), [facility] letter sent: Normal Exam Reading location: [facility] BI-RADS: 1 Negative Senait Powers MD IMG MAMMO ORDERABLES Final Result * HEPATITIS C ANTIBODY (07/09/2016 10:14 AM INJECTION MOLDING PROCESS TECHNICIAN) hepatitis C antibody 0.31 <1 S/CO 07/09/2016 10:27 PM INJECTION MOLDING PROCESS TECHNICIAN [facility] Comment: Signal/Cutoff ratio < 0.79 is Nondetected Signal/Cutoff ratio 0.80-0.99 is Grayzone Signal/Cutoff ratio > 0.99 is Detected Supplemental assays are recommended if signal/cutoff ratio is >/=1.00. Signal/cutoff ratio result >/= 5.00 is 97% predictive of positivity for recombinant immunoblot assay (RIBA) and will be reported to the [place] Department of Public Health as required. Blood specimen (specimen) Venipuncture / Unknown 07/09/2016 10:14 AM INJECTION MOLDING PROCESS TECHNICIAN 07/09/2016 10:14 AM INJECTION MOLDING PROCESS TECHNICIAN Senait Powers MD CHEMISTRY ORDERABLES Final Result [facility] [address] [place] [address], from Last 3 Months or Most Recently Relevant to Health Maintenance Insurance MEDICARE C [facility] on file Care Teams Mold Burner Relationship Specialty Start Date End Date Nestor Gotti [address] [place] [address] Ophthalmology 07/03/16
--- OUTSIDE RECORDS SUMMARY | 2024-10-15 07:24 | XMS_ITS | Encounter Summary ---
Author Organization [facility] Address [address] [place] [address] Phone Care Team Providers Care Machine Wood Sander Name Role Phone Nestor Gotti Unavailable Senait Powers MD Primary Care Provider [phone] Bon Cornell MD Unavailable Reason for Visit * Reason Comments Medication Refill Encounter Details Date Type Department Care Team (Late st Contact Info) Description 08/16/2021 Refill [facility] - Endocrinology - [place] [address] [place] [address] Bon Cornell MD [address] [address] Medication Refill Social History Tobacco [...] Telephone Encounter - Jimena Estrada RN - 08/16/2021 1:24 PM CDT Requested Prescriptions Pending Prescriptions Disp Refills ??? Insulin Syringe-Needle U-100 (INSULIN SYRINGE .5CC/31GX5/16) 31G X 5/16 0.5 ML Misc [PharmacyMed Name: CARROL SYR/NDL 31G 0.5ML 8MM] 100 Each 3 Sig: USE ONCE DAILY DIRECTED Message sent to schedule follow up. documented in this encounter Plan of Treatment Not on file documented as of this encounter Visit Diagnoses Not on filedocumented in this encounter Additional Health Concerns Assessment Noted Time PHQ-9 Depression Total Score: 0 10/31/19 21 10:00 AM CDT documented as of this encounter Care Teams Machine Wood Sander Relationship Specialty Start Date End Date Senait Powers MD [address] [place] [address] PCP - General Family Medicine 07/03/16 11/10/23 Nestor Gotti [address] [place] [address] Ophthalmology 07/03/16 Bon Cornell MD [address] [address] Consulting Physician Endocrinology 06/13/20 08/11/24 documented as of this encounter
--- OUTSIDE RECORDS SUMMARY | 2024-10-15 07:24 | XMS_ITS | Clinical Summary ---
Author Organization [facility] [employer] Address [address] [place] [address] Care Team Providers Care Crown Presser Name Role Phone Senait Powers MD Primary Care Provider [phone] Source Comments [facility] [employer],non-owned Affiliates and Associated Physician Practices is amultiple site organization consisting of ambulatory clinics and hospital sitesin [place], [place], [place] and [place]. This disclosure is being madepursuant to the Care Everywhere program and may not contain all information available regarding this patient. Last updated 18.[facility] [employer] Allergies Active Allergy Reactions Criticality Noted Date Comments Codeine Vomiting Ondansetron Nausea and/or Vomiting Low 09/15/2017 Penicillins Rash Medium Medications * Be aware that medications may not be up to date on this document. Alwaysverify current medications with the patient. amitriptyline (ELAVIL) 25 MG tablet TK 1 T PO D 0 8 Active aspirin (ASPIRIN) 81 MG chew tablet Take 81 mg by mouth Active calcium-vitami n D (CALCIUM 600+D3) 600-200 MG-UNIT tablet take one tablet twice daily Active glipiZIDE (GLUCOTROL) 5 MG tablet TK 2 TS PO BID 0 8 Active LANTUS vial INJECT 28 UNITS SUBCUTANEOUSLY EVERY EVENING 0 8 Active Insulin Syringe-Needle U-100 (INSULIN SYRINGE .5CC/30GX5/16 ) 30G X 5/16 0.5 ML MISC U ONCE A DAY 1 8 Active losartan (COZAAR) 25 MG tablet TK ONE T PO QD 2 8 Active pantoprazole EC (PROTONIX) 40 MG tablet TK 1 T PO Q 12 H 3 8 Active simvastatin (ZOCOR) 40 MG tablet TAKE 1 TABLET BY MOUTH EVERY EVENING Active Active Problems Problem Noted Date Diagnosed Date Gastroesophageal reflux disease 11/08/2019 Insomnia 11/08/2019 Nonproliferative diabetic retinopathy 11/08/2019 Abnormal mammogram 11/08/2019 Endometrial cancer 01/14/2019 Peripheral vascular disease 08/17/2018 Foot-drop 10/31/2017 Diabetes mellitus 10/31/2017 Closed fracture of right tibial plateau 09/19/19 18 Atherosclerosis of [place] of both lower extremities with intermittent claudication 12/30/2016 Overview (11/08/2019): Last Assessment & Plan: Impression: Stable nondisabling bilateral calf level claudication. No ischemic ulcerations or ischemic rest pain. No progressive stenosis noted on arterial Doppler surveillance. Plan: No surgical intervention currently needed. Patient follow-up in 6 months for re-evaluation and repeat lower extremity arterial Doppler surveillance. High blood pressure 07/03/2016 Diabetic polyneuropathy asso ciated with type 2 diabetes mellitus 07/16/2013 Overview (11/08/2019): Overview: Polyneuropathy in diabetes Hyperlipidemia 06/16/2013 Overview (11/08/2019): Hyperlipidemia Last Assessment & Plan: Impression: Stable hyperlipidemia. Plan: Continue current pharmacotherapy as directed by PCP. Tear film insufficiency 11/25/2012 Unspecified cataract 11/25/2012 Family History Medical History Relation Name Comments Cancer - Bladder Mother Cancer - Breast Mother Relation Name Status Comments Mother Social History Tobacco Use Types Packs/Day Years Used Date Smoking Tobacco: Former Smokeless Tobacco: Never Comments:e cigg 8 years ago Alcohol Use Standard Drinks/Week Comments No 0 (1 standard drink = 0.6 oz pur e alcohol) Comments No Sex and Gender Information Value Date Recorded Sex Assigned at Not on file Legal Sex Female 2:41 PM CDT Gender Identity Not on file Sexual Orientation Not on file Last Filed Vital Signs Vital Sign Reading Time Taken Comments Blood Pressure 130/80 11/08/2019 11:01 AM CDT Pulse - - Temperature - - Respiratory Rate - - Oxygen Saturation - - Inhaled Oxygen Concentration - - Weight 70.3 kg (155 lb) 11/08/2019 11:01 AM CDT Height 168.9 cm (5' 6.5) 11/08/2019 11:01 AM CD T Body Mass Index 24.64 11/08/2019 11:01 AM CDT Plan of Treatment Health Maintenance Due Date Last Done Comments BONE DENSITY TESTING 1950 COLOGUARD (AGES 45-75) - COLON CA SCREENING 1950 COLON MONITORING 1952 COLONOSCOPY - COLON CA SCREENING 1950 CT COLONOGRAPHY - COLON CA SCREENING 1950 Colorectal Cancer Screening 1950 FIT - COLON CA SCREENING 1952 FLEX SIG - COLON CA SCREENING 1950 HEPATITIS C SCREENING 11/07/1970 DIABETES-SERUM CREATININE 1970 DTAP/TDAP/TD VACCINES (1 - Tdap) 11/12/1971 PNEUMOCOCCAL VACCINE 50+ (1 of 1 - PCV) 2002 ZOSTER VACCINE (1 of 2) 2002 Respiratory Syncytial Virus (RSV) Vaccine Pt: or over 60 yrs (1 - Risk 60-74 years 1-dose series) 2012 DIABETES-FOOT EXAM WITH MONOFILAMENT 11/08/2019 DIABETES-HGB A1C 11/08/2019 08/10/2018, 09/03/2017 MAMMOGRAM 04/27/2020 04/27/2018, 07/2017 (Done Outside Per Report) COVID-19 VACCINE ( - 2023-2 5 season) 2024 DEPRESSION SCREENING 05/26/2024 DIABETES - URINE PROTEIN SCREENING 05/26/2024 08/10/2018 INFLUENZA VACCINE (Season Ended) 2025 02/16/2018, 03/28/2016, 02/27/2015 HEPATITIS B VACCINE Aged Out No longe r eligible based on patient's age to complete this topic HIB VACCINE Aged Out No longer eligi ble based on patient's age to complete this topic HPV VACCINE Aged Out No longer eligi ble based on patient's age to complete this topic MENINGOCOCCAL (Group B) VACCINE SHARED DECISION-MAKING Aged Out No longer eligible based on patient's age to complete this topic MENINGOCOCCAL GROUPS A/C/Y/W VACCINE Aged Out No longer eligible based on patient's age to complete this topic Insurance [facility] MANAGED MEDICARE ADV Care Teams Crown Presser Relationship Specialty Start Date End Date Senait Powers MD PCP - General 03/16/18
--- OUTSIDE RECORDS SUMMARY | 2024-10-15 07:24 | XMS_ITS | Encounter Summary ---
Author Organization [facility] Address [address] [place] [address] Phone Care Team Providers Care Uptwist Spinner Name Role Phone Nestor Gotti Unavailable Senait Powers MD Primary Care Provider [phone] Bon Cornell MD Unavailable Reason for Visit * Reason Comments Medication Refill Encounter Details Date Type Department Care Team (Late st Contact Info) Description 11/04/2022 Refill [facility] - Endocrinology - [place] [address] [place] [address] Bon Cornell MD [address] [address] Medication Refill Social History Tobacco Use Types Packs/Day Years Used Date Smoking Tobacco: Former Smokeless Tobacco: Never Alcohol Use Standard Drinks/Week Comments No 0 (1 standard drink = 0.6 oz pur e alcohol) PHQ-2 Answer Date Recorded Total Score - Questions 1-9 0 02/05/2022 Sexually Active Control Partners Comments Never Comments No Sex and Gender Information Value Date Recorded Sex Assigned at Not on file Legal Sex Female 10:56 PM CDT Gender Identity Not on file Sexual Orientation Not on file documented as of this encounter Miscellaneous Notes * Telephone Encounter - Yandy Barroso RN - 11/04/2022 1:52 PM CDT Medication failed the protocol, provider to review and approve the medication order if appropriate. Requested Prescriptions Pending Prescriptions Disp Refills glipiZIDE (GLUCOTROL) 5 MG Tablet [Pharmacy Med Name: GLIPIZIDE 5MG TABLETS] 360 Tablet 0 Sig: TAKE 2 TABLETS BY MOUTH TWICE DAILY Sulfonylureas Protocol Failed - 11/04/2022 10:12 AM Failed - Visit with relevant provider in past 6 months or upcoming 90 days Recent Visits Date Type Provider Dept 06/26/22 Office Visit Yolanda Roque, [facility] Showing recent visits within past 182 days and meeting all other requirements Future Appointments No visits were found meeting these conditions. Showing future appointments within next 90 days and meeting all other requirements Passed - HgA1C on record in past 6 months HGB-A1C Date Value Ref Range Status 06/26/2022 10.1 (H) 4.0 - 6.0 % Final Passed - GFR on record in past 6 months GFR, EST. NONAFRICAN Date Value Ref Range Status 06/26/2022 >60 >=60 Final t documented in this encounter Plan of Treatment Not on file documented as of this encounter Visit Diagnoses Diagnosis Type 2 diabetes mellitus with retinopathy, with long-term current use of insulin, macular edema presence unspecified, unspecified laterality, unspecified retinopathy severity (HCC) documented in this encounter Additional Health Concerns Assessment Noted Time PHQ-9 Depression Total Score: 0 06/26/19 9:00 AM SERVICE MANAGER documented as of this encounter Care Teams Uptwist Spinner Relationship Specialty Start Date End Date Senait Powers MD [address] [place] [address] PCP - General Family Medicine 07/03/16 11/10/23 Nestor Gotti [address] [place] [address] Ophthalmology 07/03/16 Bon Cornell MD [address] [id number] Consulting Physician Endocrinology 06/13/20 08/11/24 documented as of this encounter
--- OUTSIDE RECORDS SUMMARY | 2024-10-15 07:24 | XMS_ITS | Encounter Summary ---
Author Organization [facility] Address [address] [place] [address] Phone Care Team Providers Care Staffing Specialist Name Role Phone Nestor Gotti Unavailable Senait Powers MD Primary Care Provider [phone] Bon Cornell MD Unavailable Reason for Visit * Reason Comments Medication Refill Encounter Details Date Type Department Care Team (Late st Contact Info) Description 08/30/2022 Refill [facility] - Endocrinology - [place] [address] [place] [address] Bon Cornell MD [address] [address] Medication Refill Social History Tobacco [...] on file documented as of this encounter Plan of Treatment Not on file documented as of this encounter Visit Diagnoses Not on filedocumented in this encounter Additional Health Concerns Assessment Noted Time PHQ-9 Depression Total Score: 0 06/26/19 23 9:00 AM INTELLIGENCE ENGINEER documented as of this encounter Care Teams Staffing Specialist Relationship Specialty Start Date End Date Senait Powers MD [address] [place] [address] PCP - General Family Medicine 07/03/16 11/10/23 Nestor Gotti [address] [place] [address] Ophthalmology 07/03/16 Bon Cornell MD [address] [id number] Consulting Physician Endocrinology 06/13/20 08/11/24 documented as of this encounter
[2024-10-15 08:10] LABS: Creatinine Urine 114.2 mg/dL
[2024-10-15 08:15] LABS: MALB Creatinine Ratio 46.1 mg/g (0-30); Microalbumin Urine Random 52.6 mg/L (0-16.7)
[2024-10-15 08:24] LABS: Alanine Aminotransferase 23 U/L (6-35); Alkaline Phosphatase 91 U/L (38-126); Anion Gap 6 mmol/L (4-12); Aspartate Amino Transferase 26 U/L (14-36); Bilirubin,Total 0.6 mg/dL (0.2-1.3); Blood Urea Nitrogen 19 mg/dL (7-17); Calcium 9.2 mg/dL (8.4-10.2); Carbon Dioxide 30 mmol/L (22-30); Chloride 105 mmol/L (98-107); Cholesterol 157 mg/dL (0-200); Estimated Glomerular Filt Rate > 60; Glucose 276 mg/dL (65-110); HDL Direct 60 mg/dL; LDL Cholesterol Calculated 77 mg/dL (<130); Osmolality Calculated 304 mOsm/kg (285-295); Potassium 4.6 mmol/L (3.4-5.0); Sodium 141 mmol/L (137-145); Total Protein 6.6 g/dL (6.3-8.2); Triglycerides 100 mg/dL (<150)
[2024-10-15 08:41] LABS: Free T4 Free Thyroxine 1.62 ng/dL (0.78-2.19)
[2024-10-19 17:39] LABS: Vitamin D 25 Hydroxy 43 ng/mL (30-100)
== END 2024-10-15 07:20 | disposition home or self-care (01) ==
PROVIDERS: PCP Internal Medicine; Visit Provider Nurse Practitioner Family
DX: E11.9 Type 2 diabetes mellitus without complications (principal); Z68.31 Body mass index [BMI] 31.0-31.9, adult
CPT/HCPCS: 36415; 80053; 80061; 82043; 82306; 82607; 84439; 84443